=== PATIENT | female | born 1965 | race Caucasian/White ===

== ENCOUNTER 2017-01-01 10:29 | Outpatient (CLI) | payer SELFPAY ==
[2017-01-01 11:24] LABS: BASOPHILS % (AUTO) 0.6 % (0.0-2.0); EOSINOPHILS # (AUTO) 0.1 K/uL (0.0-0.4); EOSINOPHILS % (AUTO) 1.9 % (0.0-4.0); HEMATOCRIT 38.5 % (36-48); HEMOGLOBIN 12.3 g/dL (12.0-16.0); LYMPHOCYTES # (AUTO) 1.6 K/uL (1.0-5.5); LYMPHOCYTES % (AUTO) 24.1 % (20.5-51.5); MEAN CORPUSCULAR HEMOGLOBIN 26 pg (27-31); MEAN CORPUSCULAR HGB CONC 32 % (32-36); MEAN CORPUSCULAR VOLUME 81 fL (79.0-98.0); MONOCYTES # (AUTO) 0.6 K/uL (0.0-1.0); MONOCYTES % (AUTO) 8.7 % (1.7-9.3); NEUTROPHILS # (AUTO) 4.4 K/uL (1.8-7.7); NEUTROPHILS % (AUTO) 64.7 % (40.0-70.0); PLATELET COUNT (AUTO) 319 K/uL (130-430); RED BLOOD CELL COUNT(AUTO) 4.76 MIL/uL (4.2-6.2); WHITE BLOOD COUNT (AUTO) 6.8 K/uL (4.8-10.8)
[2017-01-01 12:28] LABS: POTASSIUM 4.1 mmol/L (3.5-5.1)
[2017-01-01 12:29] LABS: CALCIUM 8.5 mg/dL (8.4-11.0); CREATININE 0.9 mg/dL (0.55-1.30)
== END 2017-01-01 17:17 | disposition home or self-care (01) ==
LOC: SLB 10:29
DX: Z01.812 Encounter for preprocedural laboratory examination (principal); I83.893 Varicose veins of bilateral lower extremities with other complications
CPT/HCPCS: 36415; 80048; 85025